=== PATIENT | female | born 1990 | race Caucasian/White ===

== ENCOUNTER 2017-12-06 10:05 | Emergency (ER) | payer OTHER ==
[2017-12-06 10:38] VITALS: TEMP 98.6; BMI 22.6
[2017-12-06] MEDS ORDERED: METOCLOPRAMIDE HCL INJECTION 10 MG/2 ML VIAL IVPUSH ONE (11:12)
[2017-12-06] MEDS ORDERED: SODIUM CHLORIDE 1,000 ML IV STA (11:12)
--- NOTE | 2017-12-06 11:13 | PDOC ---
History of Present Illness - General Chief Complaint: Pain, Acute Stated Complaint: ABD PAIN, VOMITING Time Seen by Provider: 12/06/17 10:48 History Source: Patient Exam Limitations: No Limitations - History of Present Illness Initial Comments: 12/06/17 11:42 27F 7weeks , by otc urine test, no bloodwork or u/s done presents with nausea, vomiting and suprapubic pain since last night. Denies vaginal discharge or dysuria. Past History - Past Medical History Allergies/Adverse Reactions: Allergies Allergy/AdvReac Type Severity Reaction Status Date / Time No Known Allergies Allergy Verified 12/06/17 10:35 Home Medications: Ambulatory Orders Pyridoxine HCl (B-6) [Vitamin B6 -] 25 mg PO TID #21 tablet 12/06/17 COPD: No Other medical history: DENIES. - Suicide/Smoking/Psychosocial Hx Smoking History: Never smoked Review of Systems - Review of Systems Able to Perform ROS?: Yes Is the patient limited Mohawk proficient: No Constitutional: No: Symptoms Reported HEENTM: No: Symptoms Reported Respiratory: No: Symptoms reported Cardiac (ROS): No: Symptoms Reported ABD/GI: Yes: See HPI : No: Symptoms Reported Musculoskeletal: No: Symptoms Reported Integumentary: No: Symptoms Reported Neurological: No: Symptoms reported All Other Systems: Reviewed and Negative *Physical Exam - Vital Signs Last Vital Signs Temp Pulse Resp BP Pulse Ox 98.6 F 85 19 119/73 99 12/06/17 10:36 12/06/17 10:36 12/06/17 10:36 12/06/17 10:36 12/06/17 10:36 - Physical Exam General Appearance: Yes: Nourished, Appropriately Dressed, Mild Distress HEENT: positive: EOMI, FRANK, Normal ENT Inspection Respiratory/Chest: positive: Lungs Clear, Normal Breath Sounds. negative: Chest Tender, Respiratory Distress Cardiovascular: positive: Regular Rhythm, Regular Rate, S1, S2 Gastrointestinal/Abdominal: positive: Normal Bowel Sounds, Tender (mild tenderness suprapubic), Flat, Soft Extremity: positive: Normal Capillary Refill, Normal Inspection, Normal Range of Motion Integumentary: positive: Normal Color, Dry, Warm Neurologic: positive: Fully Oriented, Alert, Normal Mood/Affect ED Treatment Course - LABORATORY CBC & Chemistry Diagram: 12/06/17 12:04 12/06/17 12:05 Medical Decision Making - Medical Decision Making 12/06/17 14:40 Patient labs all within normal limit. ABD U/S; Viable twin intrauterine at approximately 6 weeks 0 days. No definite sonographic abnormality is identified. A 2 cm right ovarian cyst is seen containing increased intraluminal echogenicity probably representing a hemorrhagic corpus luteum. The left ovary could not be definitely visualized Patient dicharged with B6 rx and recommendation to follow up with OBGYN *DC/Admit/Observation/Transfer Diagnosis at time of Disposition: Twin - Discharge Dispostion Disposition: HOME Admit: No - Prescriptions Prescriptions: Pyridoxine HCl (B-6) [Vitamin B6 -] 25 mg PO TID #21 tablet - Referrals Referrals: Soledad Hall [Primary Care Provider] - - Patient Instructions Printed Discharge Instructions: Coping With Competition Between Twins, Multiple Pregnancies, How to Breastfeed Twins Additional Instructions: Follow up with your OBGYN within 2-4 days. Come back to the ED for any new, worsening or concerning symptoms - Post Discharge Activity
--- NOTE | 2017-12-06 11:38 | PDOC ---
Attending Attestation - HPI HPI: 12/06/17 12:06 The patient is a 27 year old 7 weeks female , with no significant past medical history, who presents to the emergency department with, one day of nausea, vomiting, and suprapubic pain. As per patient, she found out she was two weeks ago and is scheduled to visit her OBGYN on Thursday. She denies any recent sick contacts. She denies any recent discharge or bleeding. She denies recent fevers, chills, headache or dizziness. She denies recent diarrhea or constipation. She denies recent dysuria, frequency, urgency or hematuria. She denies recent chest pain or shortness of breath. Allergies: NKA Past surgical history: None reported. Social history: Nonsmoker. Denies EtOH use and recreational drug use. Primary Care Physician: Dr. Soledad Hall - Physicial Exam PE: 12/06/17 12:06 Constitutional: Awake, alert, oriented. No acute distress. Head: Normocephalic. Atraumatic Eyes: PERRL. EOMI. Conjunctivae are not pale. ENT: Mucous membranes are moist and intact. Posterior pharynx without exudates or erythema. Uvula midline. Neck: Supple. Full ROM. No lymphadenopathy. Cardiovascular: Regular rate. Regular rhythm. S1, S2 regular. Distal pulses are 2+ and symmetric. Pulmonary/Chest: No evidence of respiratory distress. Clear to auscultation bilaterally No wheezing, rales or rhonchi. Abdominal: Soft and non-distended. There is no tenderness. No rebound, guarding or rigidity. No organomegaly. No palpable masses. Good bowel sounds. Genitourinary: +Mild suprapubic tenderness. Back: No CVA tenderness. Musculoskeletal: No edema. No cyanosis. No clubbing. Full range of motion in all extremities. No calf tenderness. Radial/pedal pulses are intact and 2+ bilaterally Skin: Skin is warm and dry. No petechiae. No purpura. Neurological: Alert and oriented to person, place, and time. Cranial nerves II -XII are grossly intact. Normal speech. Strength is grossly symmetric. No sensory deficits. Psychiatric: Good eye contact. Normal interaction, affect and behavior. <Nima Zamorano - Last Filed: 12/06/17 12:06> - Resident Resident Name: GayleDaniel - ED Attending Attestation I have performed the following: I have examined & evaluated the patient, The case was reviewed & discussed with the resident, I agree w/resident's findings & plan, Exceptions are as noted - Medical Decision Making 12/06/17 11:37 I, Dr. Linda Beebe, DO, attest that this document has been prepared under my direction and personally reviewed by me in its entirety. I further attest, that it accurately reflects all work, treatment, procedures and medical decision -making performed by me. 12/06/17 11:37 a/p: 27yo female at 8 weeks gestation -has not seen a doc with this pregn -n/v since this AM -lower abd pain -no vaginal bleeding -no dysuria -will check labs, ultrasound, ivf hydration, nausea control -will monitor and reassess 12/06/17 14:20 labs reviewed 12/06/17 14:20 blood type is A+ 12/06/17 14:20 twin preg at 6 weeks gestation on ultrasound stable for d/c to home <Linda Beebe - Last Filed: 12/06/17 14:23> Attestations - Attestations 12/06/17 12:07 Documentation prepared by Nima Zamorano, acting as medical psychotherapist for Linda Beebe DO. <Nima Zamorano - Last Filed: 12/06/17 12:06>
[2017-12-06] MEDS ORDERED: METOCLOPRAMIDE HCL INJECTION 10 MG/2 ML VIAL ONE (12:06)
[2017-12-06 12:19] LABS: EOS % 1.3 % (0-4.5); HEMOGLOBIN 12.9 GM/dL (10.7-15.3); LYMPH % 27.6 % (8-40); MCH 28.8 pg (25.7-33.7); MCHC 33.1 g/dl (32.0-36.0); MEAN CELL VOLUME 87.1 fl (80-96); MEAN PLT VOLUME 7.7 fl (7.5-11.1); NEUT % 64.1 % (42.8-82.8); PLATELET COUNT 339 K/MM3 (134-434); RBC 4.48 M/mm3 (3.60-5.2); RDW 13.7 % (11.6-15.6); WHITE BLOOD COUNT 7.8 K/mm3 (4.0-10.0)
[2017-12-06 12:28] LABS: URINE APPEARANCE CLEAR; URINE BILIRUBIN NEGATIVE (NEGATIVE); URINE BLOOD NEGATIVE (NEGATIVE); URINE COLOR LTYELLOW; URINE GLUCOSE (UA) NEGATIVE (NEGATIVE); URINE KETONE NEGATIVE (NEGATIVE); URINE LEUK ESTERASE NEGATIVE (NEGATIVE); URINE NITRITE NEGATIVE (NEGATIVE); URINE PROTEIN NEGATIVE (NEGATIVE); URINE UROBILINOGEN NEGATIVE mg/dL (0.2-1.0)
[2017-12-06 12:48] LABS: ANION GAP 10 (8-16); BILIRUBIN,TOTAL 0.8 mg/dL (0.2-1.0); BLOOD UREA NITROGEN 5 mg/dL (7-18); CALCIUM 9.4 mg/dL (8.5-10.1); CHLORIDE 105 mmol/L (98-107); CO2 22 mmol/L (21-32); CREATININE 0.5 mg/dL (0.55-1.02); GLUCOSE,RANDOM 80 mg/dL (74-106); SGPT/ALT 25 U/L (12-78); SODIUM 137 mmol/L (136-145); TOT PROT 7.8 g/dl (6.4-8.2)
[2017-12-06 13:03] LABS: ALK PHOS 63 U/L (45-117)
[2017-12-06 13:06] LABS: POTASSIUM 4.4 mmol/L (3.5-5.1); SGOT/AST 21 U/L (15-37)
[2017-12-06 15:09] VITALS: BP 115/67; PULSE 72
== END 2017-12-06 15:11 | disposition home or self-care (01) ==
LOC: JER 10:05
PROC: 3E033GC Introduction of Other Therapeutic Substance into Peripheral Vein, Percutaneous Approach (ICD-10-PCS; principal; 2017-12-06)
DX: O26.891 Other specified pregnancy related conditions, first trimester (principal); O30.091 Twin pregnancy, unable to determine number of placenta and number of amniotic sacs, first trimester; Z3A.01 Less than 8 weeks gestation of pregnancy
CPT/HCPCS: 36415; 76801-TC; 80053; 81003; 84702; 85025; 86850; 86900; 86901; 99283-25

== ENCOUNTER 2018-02-09 11:58 | Emergency (ER) | payer OTHER ==
[2018-02-09 12:05] VITALS: BMI 23.0
--- NOTE | 2018-02-09 12:33 | PDOC ---
History of Present Illness - General Chief Complaint: Cold Symptoms Stated Complaint: COLD SYMPTOMS Time Seen by Provider: 02/09/18 12:33 - History of Present Illness Initial Comments: 27 year old female 15 weeks by US presenting with cough, nasal congestion , and right lower chest pain. States that she had a mostly dry cough starting 5 days ago that has seemingly improved but just started to develop nasal congestion over the past three days. She had a coughing bout last night that caused her moore in her right lower ribs that is worse with cough, deep inspiration, palpation, and certain movements. She has taken Tylenol with good relief and Dr. Conway recommended she take a non-additive form of robutussin when she called her a few nights ago. She otherwise denies fevers, chills,. nause,a vomiting, diarrhea, urinary symptos, vaginal discharge/ bleeding, or other symptoms. 02/09/18 12:56 Past History - Past Medical History Allergies/Adverse Reactions: Allergies Allergy/AdvReac Type Severity Reaction Status Date / Time No Known Allergies Allergy Verified 02/09/18 12:02 Home Medications: Ambulatory Orders Azithromycin [Zithromax 250mg Tablets -] 250 mg PO UTDICT #6 tab 02/09/18 No122/Iron/Folic Acid [ Multi Tablet] 1 each PO DAILY 02/09/18 COPD: No - Reproductive History (#): 1 Para: 0 - Immunization History Immunization Up to Date: Yes - Suicide/Smoking/Psychosocial Hx Smoking History: Never smoked Have you smoked in the past 12 months: No Information on smoking cessation initiated: No Hx Alcohol Use: No Drug/Substance Use Hx: No Substance Use Type: None Review of Systems - Review of Systems Constitutional: No: Chills, Diaphoresis, Fever Respiratory: No: Cough, Orthopnea, Shortness of Breath Cardiac (ROS): Yes: Chest Pain. No: Edema, Irregular Heart Rate ABD/GI: No: Constipated, Diarrhea, Nausea, Vomiting, Indigestion : No: Burning, Dysuria, Discharge Musculoskeletal: No: Back Pain, Gout, Joint Pain, Muscle Weakness Integumentary: No: Bruising, Erythema, Flushing, Lesions Neurological: Yes: Headache. No: Numbness, Paresthesia Hematologic/Lymphatic: No: Anemia, Blood Clots, Easy Bleeding *Physical Exam - Vital Signs Last Vital Signs Temp Pulse Resp BP Pulse Ox 98.9 F 101 H 18 124/72 100 02/09/18 12:02 02/09/18 12:02 02/09/18 12:02 02/09/18 12:02 02/09/18 12:02 - Physical Exam General Appearance: Yes: Nourished, Appropriately Dressed. No: Apparent Distress HEENT: positive: EOMI, FRANK, Normal Voice, Symmetrical, TMs Normal. negative: Normal ENT Inspection (Slight sinus tenderness), Pharynx Normal (erythemetaous oropharnyx) Neck: positive: Trachea midline, Normal Thyroid, Supple. negative: Tender, Rigid Respiratory/Chest: positive: Chest Tender (right lower rib moore), Lungs Clear, Normal Breath Sounds. negative: Respiratory Distress, Accessory Muscle Use Cardiovascular: positive: Regular Rhythm, Regular Rate Gastrointestinal/Abdominal: positive: Normal Bowel Sounds, Soft, Protuberent. negative: Tender, Flat Musculoskeletal: negative: Normal Inspection (right lower rib pain per above), CVA Tenderness Extremity: positive: Normal Capillary Refill, Normal Inspection. negative: Tender Integumentary: positive: Normal Color, Dry, Warm Neurologic: positive: Fully Oriented, Alert, Normal Mood/Affect, Motor Strength 5/5 Medical Decision Making - Medical Decision Making Healthy 27 year old female 15 weeks by US presenting with symptoms concerning for viral URI but given status and slightly prolonged course of symptoms will treat empirically for sinusitis and atypical pneumonia. Not likely PE given lack of hypoxia and quality of chest pain (reproducible). Influenzae negative so will send home with Z-pack and return precautions. 02/09/18 13:36 *DC/Admit/Observation/Transfer Diagnosis at time of Disposition: URI (upper respiratory infection) Qualifiers: URI type: unspecified viral URI Qualified Code(s): J06.9 - Acute upper respiratory infection, unspecified - Discharge Dispostion Disposition: HOME Condition at time of disposition: Improved Admit: No - Prescriptions Prescriptions: Azithromycin [Zithromax 250mg Tablets -] 250 mg PO UTDICT #6 tab - Referrals Referrals: Soledad Hall [Primary Care Provider] - Divya Valentin MD [Staff Physician] - - Patient Instructions Printed Discharge Instructions: DI for Viral Upper Respiratory Infection -- Adult Additional Instructions: Pdlease take your azithromycin as instructed. Please return to the ED if you have new or worsening symptoms. Please follow up with Dr. Conway in 3 days. - Post Discharge Activity
--- NOTE | 2018-02-09 13:18 | PDOC ---
Attending Attestation - Resident Resident Name: CristyBladepauline - ED Attending Attestation I have performed the following: I have examined & evaluated the patient, The case was reviewed & discussed with the resident, I agree w/resident's findings & plan - HPI HPI: 02/09/18 13:15 Healthy 27-year-old female about 15 weeks uneventful twin gestation presents with 4-5 days of increasing URI symptoms of nasal congestion, dry cough, and now with some localized right rib pain since last night. Patient was having forceful coughing fit and developed a sharp pain to her right lower ribs, since then pain has been persistent and worse with sneezing or coughing or deep inspiration. No change in the cough, no shortness of breath or dyspnea on exertion, no chest pain. No fevers or chills. Has symptoms of sinusitis, presents for evaluation. No unilateral leg swelling or pain, no recent travel, nonsmoker. No history of pneumonia. - Physicial Exam PE: 02/09/18 13:16 Vital signs within normal limits, heart rate 95 at rest. O2 sat 100% on room air Positive nasal congestion, oropharynx is clear, neck is supple Lungs are clear without focal wheezing, no focally decreased breath sounds, no accessory muscle use Reproducible right lower rib intercostal tenderness without bruising or swelling No edema - Medical Decision Making 02/09/18 13:17 Patient seen and evaluated with the resident. I agree with the overall evaluation, assessment, and management with the following summary of visit: Healthy 27-year-old female with URI symptoms for 5 days, right rib pain since last night most consistent with rib strain, no evidence of pneumonia on history or exam. Likely has superimposed sinusitis. Vital signs are normal No indication for emergent imaging We'll treat sinusitis with azithromycin Tylenol for pain Understands return criteria
[2018-02-09 13:33] VITALS: BP 118/84; PULSE 98; TEMP 98.1
== END 2018-02-09 13:54 | disposition home or self-care (01) ==
LOC: JER 11:58
DX: O99.512 Diseases of the respiratory system complicating pregnancy, second trimester (principal); J06.9 Acute upper respiratory infection, unspecified; Z3A.15 15 weeks gestation of pregnancy
CPT/HCPCS: 87804; 99282-25

== ENCOUNTER 2018-02-19 09:59 | Emergency (ER) | payer OTHER ==
[2018-02-19 10:08] VITALS: TEMP 98.2; BMI 23.2
--- NOTE | 2018-02-19 10:33 | PDOC ---
History of Present Illness - General Chief Complaint: Pain, Acute Stated Complaint: RT SIDE PAIN Time Seen by Provider: 02/19/18 10:32 History Source: Patient - History of Present Illness Initial Comments: 02/19/18 10:52 Patient is a 27 year old female at a self-reported 16 weeks gestation who presents with acute onset of R sided pain. Patient states she had an episode of emesis this morning which was followed immediately by a "sharp" pain in her right side. The pain is non-radiating, 10/10 and worse with movement but not with breathing. Denies any recent trauma, note h/o viral URI for which was taking Robitussin. Patient states she had an outpatient abdominal U/S earlier this week at which time she was told everything was normal. Patient denies fevers/chills, chest pain, shortness of breath, vaginal bleeding , dysuria/hematuria. As per EMR patient evaluated at our facility on 02/09 with viral URI symptoms at which time she similarly complained of R rib pain. 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 Past History - Past Medical History Allergies/Adverse Reactions: Allergies Allergy/AdvReac Type Severity Reaction Status Date / Time No Known Allergies Allergy Verified 02/19/18 10:03 Home Medications: Ambulatory Orders No122/Iron/Folic Acid [ Multi Tablet] 1 each PO DAILY 02/09/18 COPD: No - Reproductive History (#): 1 Para: 0 - Immunization History Immunization Up to Date: Yes - Suicide/Smoking/Psychosocial Hx Smoking History: Never smoked Have you smoked in the past 12 months: No Hx Alcohol Use: No Drug/Substance Use Hx: No Substance Use Type: None Review of Systems - Review of Systems Constitutional: No: Chills, Fever HEENTM: No: Recent change in vision Respiratory: No: Cough, Shortness of Breath Cardiac (ROS): No: Chest Pain, Lightheadedness, Palpitations, Syncope ABD/GI: Yes: Nausea, Vomiting. No: Constipated, Diarrhea : No: Burning, Dysuria *Physical Exam - Vital Signs Last Vital Signs Temp Pulse Resp BP Pulse Ox 98.2 F 82 18 140/90 100 02/19/18 10:03 02/19/18 10:03 02/19/18 10:03 02/19/18 10:03 02/19/18 10:03 - Physical Exam General Appearance: Yes: Nourished, Appropriately Dressed HEENT: positive: EOMI, FRANK Neck: positive: Trachea midline, Supple Respiratory/Chest: positive: Lungs Clear Cardiovascular: positive: S1, S2 Vascular Pulses: Dorsalis-Pedis (R): 1+, Doralis-Pedis (L): 1+ Gastrointestinal/Abdominal: positive: Normal Bowel Sounds, Soft, Other (fundal height b/t sub-xiphoid and umbilicus) Musculoskeletal: negative: CVA Tenderness (R), CVA Tenderness (L) Extremity: positive: Normal Capillary Refill, Normal Inspection Integumentary: positive: Normal Color, Dry, Warm Neurologic: positive: Fully Oriented, Alert ED Treatment Course - LABORATORY CBC & Chemistry Diagram: 02/19/18 12:18 02/19/18 12:18 Medical Decision Making - Medical Decision Making 02/19/18 12:41 27 year old female at a self-reported 16 weeks gestation presents with R sided abdominal pain. Collins's sign equivocal. R sided rib cage tenderness. Will obtain abdominal and GB U/S to rule out early appendicitis or cholecystitis. Reasess. 02/19/18 13:02 CBC shows no leukocytosis. Normal GB w/o cholelithiasis or posterior wall thickening on U/S. Appendix not visualized. Patient's pain resolved with IV NS and Tylenol. At this time low clinical suspicion for acute abdomen including cholecystitis, appendicitis, suspect muscle strain. Patient and patient's family at beside counseled on SiSx of appendicitis and instructed return immediately to ED for fevers, vomiting, severe pain. I discussed the physical exam findings, ancillary test results and final diagnoses with the patient. I answered all of the patient's questions. The patient was satisfied with the care received and felt comfortable with the discharge plan and treatment plan. The patient will return to the Emergency Department with any new, persistent or worsening symptoms. *DC/Admit/Observation/Transfer Diagnosis at time of Disposition: Muscle strain - Discharge Dispostion Disposition: HOME Condition at time of disposition: Good Admit: No - Referrals Referrals: Soledad Hall [Primary Care Provider] - - Patient Instructions Printed Discharge Instructions: Muscle Strain Additional Instructions: You can take Tylenol for your pain. Follow up with your primary care doctor in the next 48-72 hours. Return to the Emergency Department for any new/worsening/concerning symptoms. - Post Discharge Activity Forms/Work/School Notes: Back to Work
--- NOTE | 2018-02-19 10:52 | PDOC ---
Attending Attestation - Resident Resident Name: Myranda Chapa - ED Attending Attestation I have performed the following: I have examined & evaluated the patient, The case was reviewed & discussed with the resident, I agree w/resident's findings & plan, Exceptions are as noted - HPI HPI: 02/20/18 18:15 Ms Clay is a 27 yo female 16 weeks gestation by who presents with R sided thoracic/abdominal pain. One episode of emesis Worsens with moving or palpation. Not worse with deep breath Non-radiating, 10/10 and worse with movement but not with breathing. no recent trauma No fevers or chills. No shortness of breath - Physicial Exam PE: 02/20/18 19:09 On examination Pt is Awake and Alert Answers questions appropriately RRR CTA Gravid abdomen No abdominal tenderness to palpation right midaxillary point tenderness - Medical Decision Making Point tenderness which has been present since patient's last visit US no evidence of appendicitis (however patient's pain is right lower thoracic) No abdominal pain No evidence of UTI Pt can have tylenol for pain Will discharge to home Follow up with OB
[2018-02-19 12:30] LABS: BASO % 0.5 % (0-2.0); EOS % 1.1 % (0-4.5); HEMATOCRIT 35.2 % (32.4-45.2); HEMOGLOBIN 12.1 GM/dL (10.7-15.3); LYMPH % 19.8 % (8-40); MCH 30.4 pg (25.7-33.7); MCHC 34.4 g/dl (32.0-36.0); MEAN CELL VOLUME 88.3 fl (80-96); MEAN PLT VOLUME 7.2 fl (7.5-11.1); MONO % 5.2 % (3.8-10.2); NEUT % 73.4 % (42.8-82.8); PLATELET COUNT 291 K/MM3 (134-434); RBC 3.99 M/mm3 (3.60-5.2); WHITE BLOOD COUNT 10.4 K/mm3 (4.0-10.0)
[2018-02-19 12:55] LABS: ALBUMIN 3.1 g/dl (3.4-5.0); ANION GAP 7 (8-16); BILIRUBIN,TOTAL 0.3 mg/dL (0.2-1.0); BLOOD UREA NITROGEN 6 mg/dL (7-18); CALCIUM 8.5 mg/dL (8.5-10.1); CHLORIDE 108 mmol/L (98-107); CO2 23 mmol/L (21-32); CREATININE 0.3 mg/dL (0.55-1.02); GLUCOSE,RANDOM 76 mg/dL (74-106); LIPASE 166 U/L (73-393); SGOT/AST 24 U/L (15-37); SGPT/ALT 40 U/L (12-78); SODIUM 138 mmol/L (136-145); TOT PROT 6.5 g/dl (6.4-8.2)
[2018-02-19 13:11] LABS: ALK PHOS 53 U/L (45-117)
[2018-02-19 13:19] LABS: URINE APPEARANCE CLEAR; URINE BILIRUBIN NEGATIVE (<2.0 mg/dL); URINE COLOR STRAW; URINE GLUCOSE (UA) NEGATIVE (NEGATIVE); URINE KETONE NEGATIVE (NEGATIVE); URINE LEUK ESTERASE NEGATIVE (NEGATIVE); URINE NITRITE NEGATIVE (NEGATIVE); URINE PROTEIN NEGATIVE (NEGATIVE); URINE UROBILINOGEN NEGATIVE mg/dL (0.2-1.0)
[2018-02-19 14:21] VITALS: BP 114/87; PULSE 81
== END 2018-02-19 14:15 | disposition home or self-care (01) ==
LOC: JER 09:59
DX: O26.892 Other specified pregnancy related conditions, second trimester (principal); Z3A.16 16 weeks gestation of pregnancy; T14.8XXA Other injury of unspecified body region, initial encounter
CPT/HCPCS: 36415; 76705-TC; 76856-TC; 80053; 81003; 83605; 83690; 84702; 85025; 87086; 99282-25

== ENCOUNTER 2018-07-01 13:35 | Inpatient (IN) | payer OTHER ==
[2018-07-01] MEDS ORDERED: LACTATED RINGERS SOLUTION 500 ML IV ONE ×2 (14:45→15:45)
[2018-07-01] MEDS ORDERED: CITRIC ACID/SODIUM CITRATE 30 ML UNIT-DOSE CUP PO ONE (16:05)
[2018-07-01] MEDS ORDERED: ELECTROLYTE-148 SOLN 1,000 ML IV SCH (16:15)
[2018-07-01 16:22] VITALS: BMI 28.5
--- NOTE | 2018-07-01 16:26 | HP ---
Past Medical History - Primary Care Physician PCP:: Divya Valentin - Admission Chief Complaint: 27 yrs , 35.4/7 weeks by sono & 36.1 weeks by dates known c/o monchorionic diamniotic twins in labor ( vx, & breech ) onset since 11.15 AM s/p Betamthasone 12.5 mg x2 dose given on & 06/11. She was hydrated twice before for Threatened PTL on 06/10 & 06/24/18. sono done today A baby vx with hand in front of it ,fluid in front of vx ,. B baby breech , . after IV hydration UC did not stop , continue to have uc. Case discussed with Dr Alonzo , In view of continued labor uc, & small babies recommends delivery , no need of tocolysis . History of Present Illness: care at [address] [place] [address] wt gain34 lbs panel 12/11/17 A pos, hbsag neg, rpr nr, rubella immune, hiv neg, sickle neg , cf screen neg .Pap NILM, gc/ct neg 04/20/18 pngt 100, rpr nr, Quantiferon neg 06/29/18 gbs taken report pending , gc/ct neg , hiv neg. 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 Weeks Gestation by Dates: 36.3 ...EDC by Dates: 07/26/18 ...EDC by Sono: 08/01/18 (35.4 weeks by sono ) Heme/Onc: No: Anemia Infectious Disease: No: AIDS, HIV, STD's, Tuberculosis Psych: Yes: Other (no h/o mental illness) Endocrine: No: Hyperthyroidism, Hypothyroidism - Past Surgical History Past Surgical History: Yes: None Hx Myomectomy: No Hx Transabdominal Cerclage: No - Smoking History Smoking history: Never smoked Have you smoked in the past 12 months: No - Alcohol/Substance Use Hx Alcohol Use: No History of Substance Use: reports: None Home Medications - Allergies Allergies/Adverse Reactions: Allergies Allergy/AdvReac Type Severity Reaction Status Date / Time No Known Allergies Allergy Verified 07/01/18 15:29 - Home Medications Home Medications: Ambulatory Orders Ferrous Sulfate [Feosol] 325 mg PO DAILY 06/10/18 Vitamins (Sjr) - 1 tab PO DAILY 06/10/18 Physical Exam - Maternity Vital Signs: Vital Signs Temperature 99.3 F 07/01/18 14:00 Pulse Rate 106 H 07/01/18 14:00 Respiratory Rate 18 07/01/18 14:00 Blood Pressure 127/78 07/01/18 14:00 O2 Sat by Pulse Oximetry (%) Selected Entries 07/01/18 16:07 Weight 151 lb Constitutional: Yes: Well Nourished, Anxious, Mild Distress Eyes: Yes: WNL HENT: Yes: WNL, Normocephalic Neck: Yes: WNL Cardiovascular: Yes: WNL, Regular Rate and Rhythm Breast(s): Yes: WNL - Abdominal Exam/OB Fundal Height: 38 Number of Fetuses: Multiple Presentation: Vertex, Breech Contractions: Yes Regularity: Regular (2-3 min) Intensity: Moderate Monitor Mode: External Heart Rate (range): 135/140 Heart Rate Location: LUQ (B baby 140-150), RLQ (A baby 135-140) Category: I Accelerations: Uniform Decelerations: None - Vaginal Exam/OB Vaginal Bleediing: No Speculum Exam: No Dilatation (cm): FT Effacement (%): 60 Amniotic Membrane Status: Intact Presentation: Vertex/Position (A Baby Vx B Baby Breech) Station: -3 - Physical Exam Extremities: Yes: WNL. No: Calf Tenderness Edema: Yes Edema: LLE: 1+, RLE: 1+ Integumentary: Yes: WNL Deep Tendon Reflex Grade: Normal +2 ...Motor Strength: WNL Psychiatric: Yes: WNL, Alert, Oriented - Labs Lab Results: Laboratory Tests 07/01/18 16:15 WBC 10.3 H RBC 4.28 Hgb 13.4 Hct 39.6 Plt Count 232 D MPV 7.7 Absolute Neuts (auto) 7.1 Neutrophils % 68.6 Lymphocytes % 22.1 Monocytes % 7.6 Eosinophils % 1.2 Basophils % 0.5 Laboratory Tests 07/01/18 07/01/18 07/01/18 16:15 16:15 16:15 PT with INR 10.50 INR 0.93 PTT (Actin FS) 26.2 Sodium 137 Potassium 4.2 Chloride 104 Carbon Dioxide 24 BUN 11 Random Glucose 63 L Calcium 9.2 Blood Type A POSITIVE Antibody Screen Negative Hemorrhage Risk Assessment - Risk Factors Medium Risk Factors: Yes: Multiple gestation Risk Score: 1 Risk Level: Medium Risk Problem List - Problems (1) with 35 completed weeks gestation Code(s): Z3A.35 - 35 WEEKS GESTATION OF (2) Monochorionic diamniotic twin gestation in third trimester Code(s): O30.033 - TWIN , MONOCHORIONIC/DIAMNIOTIC, THIRD TRIMESTER (3) Labor established Code(s): KIZ8533 - Assessment/Plan 27 yrs 35.4, Twins monochorionic diamniotic ,( 16 % discordant growth ) vx & breech , in labor Plan : Primary c/section
[2018-07-01 16:44] LABS: BASO % 0.5 % (0-2.0); EOS % 1.2 % (0-4.5); HEMATOCRIT 39.6 % (32.4-45.2); HEMOGLOBIN 13.4 GM/dL (10.7-15.3); LYMPH % 22.1 % (8-40); MCH 31.4 pg (25.7-33.7); MCHC 33.9 g/dl (32.0-36.0); MEAN CELL VOLUME 92.5 fl (80-96); MEAN PLT VOLUME 7.7 fl (7.5-11.1); MONO % 7.6 % (3.8-10.2); NEUT % 68.6 % (42.8-82.8); PLATELET COUNT 232 K/MM3 (134-434); RBC 4.28 M/mm3 (3.60-5.2); RDW 13.9 % (11.6-15.6); WHITE BLOOD COUNT 10.3 K/mm3 (4.0-10.0)
[2018-07-01 17:01] LABS: INR 0.93 (0.83-1.09); PROTHROMBIN TIME (PATIENT) 10.5 SEC (9.7-13.0)
[2018-07-01 17:04] LABS: ACTIVATED PTT 26.2 SECONDS (25.2-36.5)
[2018-07-01 17:06] LABS: ANION GAP 9 MMOL/L (8-16); BLOOD UREA NITROGEN 11 mg/dL (7-18); CALCIUM 9.2 mg/dL (8.5-10.1); CHLORIDE 104 mmol/L (98-107); CO2 24 mmol/L (21-32); CREATININE 0.6 mg/dL (0.55-1.3); GLUCOSE,RANDOM 63 mg/dL (74-106); POTASSIUM 4.2 mmol/L (3.5-5.1); SODIUM 137 mmol/L (136-145)
[2018-07-01] MEDS ORDERED: morphine SULFATE/Preservative Free 0.5 MG/ML (1cc Syringe) ONE (17:08)
[2018-07-01] MEDS ORDERED: OXYTOCIN 20 UNITS in 0.9% NS 40 UNIT/2,000 ML INFUS.BAG IV ONE (17:11)
[2018-07-01] MEDS ORDERED: PHENYLEPHRINE HCL 10 MG/1 ML SINGLE DOSE VIAL ONE (17:37)
[2018-07-01] MEDS ORDERED: OXYTOCIN 10 UNITS/ML VIAL ONE (17:37)
[2018-07-01] MEDS ORDERED: ONDANSETRON 4 MG/2 ML VIAL IVPUSH PRN (18:26)
[2018-07-01 18:33] LABS: VENOUS PC02 42.4 mmHg (38-52); VENOUS PH 7.35 (7.32-7.42); VENOUS PO2 30.6 mmHg (28-48)
[2018-07-01 18:35] LABS: ARTERIAL BLOOD GAS BASE EXCESS -2.2 meq/l (-2-2); ARTERIAL BLOOD GAS PCO2 59.9 mmHg (35-45); ARTERIAL BLOOD GAS pH 7.26 (7.35-7.45)
[2018-07-01 18:37] LABS: ARTERIAL BLOOD GAS PO2 9.5 mmHg (80-100)
[2018-07-01 18:38] LABS: ARTERIAL BLD GAS O2 SATURATION 8.9 % (90-98.9)
[2018-07-01 18:40] LABS: ARTERIAL BLOOD GAS BASE EXCESS -2.9 meq/l (-2-2); ARTERIAL BLOOD GAS PCO2 50.2 mmHg (35-45); ARTERIAL BLOOD GAS pH 7.3 (7.35-7.45)
[2018-07-01 18:45] LABS: ARTERIAL BLOOD GAS PO2 21.2 mmHg (80-100)
[2018-07-01 18:46] LABS: ARTERIAL BLD GAS O2 SATURATION 39.1 % (90-98.9)
[2018-07-01 18:47] LABS: VENOUS PC02 44.9 mmHg (38-52); VENOUS PH 7.35 (7.32-7.42); VENOUS PO2 29.5 mmHg (28-48)
--- NOTE | 2018-07-01 18:48 | PN ---
Delivery - Delivery Section: Primary, Low Flap Transverse (35.4 weeks twins in labor) Type of Anesthesia: Spinal EBL (cc): 700 (back out put 200 ml jody color ) Delivery, Single - Feeding Plan Initial Plan: Elected not to breastfeed exclusively throughout hospitalization Delivery, Multiple Births - Stages of Labor First Stage Date: 07/01/18 Time: 11:15 Delivery Baby "A" Date: 07/01/18 Time: 17:36 Placenta/Membranes "A" Date: 07/01/18 Time: 17:38 Delivery Baby "B" Date: 07/01/18 Time: 17:37 Placenta/Membranes "B" Date: 07/01/18 Time: 17:38 - Condition of Multiple Births 2 (B) Transcribing Operators Supervisor/Pile Driver Operator Present: Yes Transcribing Operators Supervisor: Reba Sood Gender: Female Weight: 4 lb 1 oz Position: Right (wilmar breech), SA Total Hours ROM (HRS/MINS): 3 min Placenta: Yes: Manual Removal, Uterine Exploration (monochorionic placenta) 1 (A) Transcribing Operators Supervisor/Pile Driver Operator Present: Yes Transcribing Operators Supervisor: Reba Sood Gender: Female Position: Right, OT Placenta: Yes: Manual Removal, Uterine Exploration (monochorionic [lacenta , diamnitic sac) - [place] 1 (A) 1 Minute Score: 9 [place] 1 (A) 5 Minutes Score: 9 2 (B) 1 Minute Score: 9 [place] 2 (B) 5 Minutes Score: 9 Remarks - Remarks Remarks: 27 yrs 35.4 weeks , monochorionic diamniotic twins , in labor pnc at [address] [place] [address] intraop course uneventful
--- NOTE | 2018-07-01 19:01 | OP ---
Operative Note - Note: Operative Date: 07/01/18 Pre-Operative Diagnosis: 35.4 weeks , Monichirionic Diamniotic Twins in Labor Operation: Primary LFTC/Section Findings: A baby tob , 5.36 pM , Baby Girl Vx ROT , 9/9, Wt 3'6" Ht 16.25" B baby tob 5.37 PM , Baby Girl, Storm Breech, RST , 9/9, Wt 4'1" , Ht 17 " one placenta, Two Amniotic Sac Amniotic fluid clear Both tubes & ovaries normal Dr Barrie Britton Die Caster present in the room Surgeon: Divya Valentin Mechanic Insulator: José Lopez Anesthesiologist/TAX PREPARER: Lazaro Muñoz Anesthesia: Spinal Specimens Removed: A baby cord segment for cord gas. A baby cord blood. B baby cord segment for cord gas. B baby cord blood. Placenta Estimated Blood Loss (mls): 700 Drains, Volume Out (mls): 200 (back out put jody color urine ) Fluid Volume Replaced (mls): 1,000 Operative Report Dictated: Yes
[2018-07-01] MEDS ORDERED: METHYLERGONOVINE MALEATE 0.2 MG/1 ML AMP IM PRN (19:09)
[2018-07-01] MEDS ORDERED: IBUPROFEN 800 MG/8 ML IJ IVPB PRN (19:09)
[2018-07-01] MEDS ORDERED: OXYTOCIN 20 UNITS in 0.9% NS 20 UNIT/1,000 ML INFUS.BAG IV SCH (19:30)
[2018-07-02] MEDS ORDERED: DEXTROSE 5%-WATER - 50 ML IVPB ONE ×3 (01:40→17:44)
[2018-07-02] MEDS ORDERED: ceFAZolin SODIUM 1 GM VIAL ONE ×3 (01:40→17:44)
[2018-07-02] MEDS: CEFAZOLIN 1 GM in DEXTROSE 5%-WATER - 50 ML IVPB SCH ×3 (01:49→17:50)
[2018-07-02 06:57] LABS: BASO % 0.4 % (0-2.0); EOS % 0.6 % (0-4.5); HEMATOCRIT 36.1 % (32.4-45.2); HEMOGLOBIN 12.2 GM/dL (10.7-15.3); LYMPH % 16.4 % (8-40); MCH 31.4 pg (25.7-33.7); MCHC 33.9 g/dl (32.0-36.0); MEAN CELL VOLUME 92.4 fl (80-96); MEAN PLT VOLUME 7.6 fl (7.5-11.1); MONO % 5.9 % (3.8-10.2); NEUT % 76.7 % (42.8-82.8); PLATELET COUNT 189 K/MM3 (134-434); RDW 13.8 % (11.6-15.6); WHITE BLOOD COUNT 11.6 K/mm3 (4.0-10.0)
--- NOTE | 2018-07-02 08:21 | PN ---
Progress Note (short form) - Note Progress Note: pod 1,s/p c/s , has mild low abdominal cramps, no excess vaginal bl;eeding CBC, BMP 07/02/18 06:00 07/01/18 16:15 Last Vital Signs Temp Pulse Resp BP Pulse Ox 98.0 F 86 18 107/77 99 07/02/18 06:00 07/02/18 06:00 07/02/18 06:00 07/02/18 06:00 07/01/18 21:00 abdomen soft, no distension, no cva incision dry, clean no no bleeding no calf tenderness plan ambulate, advance diet , pain management
--- NOTE | 2018-07-02 08:26 | PN ---
Progress Note (short form) - Note Progress Note: Anesthesia Post op/pain Pt seen and examined S;Alert and awake comfortable O: Vital Signs Temperature 98.0 F 07/02/18 06:00 Pulse Rate 86 07/02/18 06:00 Respiratory Rate 18 07/02/18 06:00 Blood Pressure 107/77 07/02/18 06:00 O2 Sat by Pulse Oximetry (%) 99 07/01/18 21:00 CBC, BMP 07/02/18 06:00 07/01/18 16:15 A/P Current Active Problems Labor established (Acute) Monochorionic diamniotic twin gestation in third trimester (Acute) with 35 completed weeks gestation (Acute) s/p c section Doing well post op Continue current care Kory Bradley MD
[2018-07-02] MEDS ORDERED: oxyCODONE HCL 5 MG TABLET PO PRN (09:00)
--- NOTE | 2018-07-02 09:11 | OP ---
DATE OF OPERATION: 07/01/2018 PREOPERATIVE DIAGNOSIS: At 35.4 weeks monochorionic diamniotic twins in labor. OPERATION: Primary low flap transverse section. SURGEON: Divya Valentin MD ELECTRONICS PARTS SALES REPRESENTATIVE SURGEON: VENITA Anglin ANESTHESIOLOGIST: Lazaro Muñoz MD ANESTHESIA: Spinal. EGG AND SPICE MIXER: Katelin Sood DO FINDINGS: This is a 27-year-old 1, para 0 at 36.1 weeks by dates and 35.4 weeks by sonogram diagnosed with monochorionic diamniotic twins. She started having contractions and getting contractions every 2 minutes. She was fingertip, 60% effaced, and the cervix was ballooned up. Discordance of the twins is they are 16% by the sonogram. As per recommendation by perinatologist, Dr. Hinton, deliver the babies. A baby by sonogram was Vertex. B baby breech presentation. Findings postoperative A baby girl Rot,3.6 ounces and height 16.25 inches. Baby B girl , wilmar breech rst 4.1 ounces and height 17 inches. scores for both babies 9/9. DESCRIPTION OF PROCEDURE: The abdomen was shaved, prepped. [place] was placed. Patient was taken to the operating room. Spinal anesthesia was given. The patient was placed in supine position. Abdomen was painted and draped in the usual manner, and the Pfannenstiel incision was made. Skin, subcutaneous tissue, anterior rectus sheath was incised transversely. Bleeding points were clamped and cauterized. Rectus muscle was from the rectus sheath. Parietal peritoneum was opened vertically. The lower flap by the peritoneum was incised transversely. Bladder was pushed down. The lower uterine segment was isolated. The lower uterine segment was incised transversely. B baby membranes ruptured first incidently and then delivery of A baby in vertex presentation from ROT position.,along with sac ruptured at he same time Baby girl. Weight was 3.6 ounces. Baby Apgars was 9/9. Cord was clamped. The A baby was handed over to the chief nursing executive. Baby B was breech presentation, wilmar breech, RST, was delivered at 5:37 p.m. Baby girl; Apgars 9/9, weight 4 pounds 1 ounce. Cord was clamped, and the cord was marked with the 2 clamps. Baby A cord segment was submitted for the cord blood gas, and baby A cord blood was collected, and it was marked with 1 clamp. Baby B cord segment was collected. Baby B blood was collected, and it was marked with 2 clamps. Placenta was removed completely with the membranes. Uterine cavity was cleaned then the closure of the uterine incision was done in 2 layers. The first layer was continuous locking with Biosyn 0 suture. Second layer was a continuous intermittent locking with a Biosyn 0 suture. Hemostasis was verified. Then the bladder peritoneum was closed with a Biosyn 0 suture. Hemostasis was verified. Both the tubes and ovaries were normal. The sponge, instrument and needle count was correct, and closure of the abdomen was done. Parietal peritoneum was closed with Vicryl suture. Muscles were approximated together with a Vicryl interrupted suture underneath anterior rectus sheath. Hemostasis was verified. Anterior rectus sheath was closed with a Vicryl 0 suture. Continuous sutures were taken. Hemostasis was verified in subcutaneous tissue and then the subcutaneous tissue was approximated with 2-0 Vicryl sutures. Hemostasis was verified. Then the skin was approximated with intradermal 3-0 Vicryl, Steri-Strips applied and pressure given. Vagina was cleaned with Betadine. Hardly any blood was noted in the vagina. Estimated blood loss was 700 mL. Urine output was 200 mL intraoperatively. It was clear. She received 2 g of IV Ancef prior to the incision. The patient tolerated the procedure well, and she was transferred to the recovery room in stable condition. Misti [id number] MTDD
[2018-07-02] MEDS: PRENATAL VITAMINS W/ FOLIC ACID TABLET (FP) PO SCH (09:14)
[2018-07-02] MEDS: ENOXAPARIN NA (PORCINE) 40 MG/0.4 ML DISP.SYRIN SQ SCH (09:14)
[2018-07-02] MEDS: IBUPROFEN 600 MG TABLET (FP) PO PRN ×2 (10:55→16:17)
[2018-07-02] MEDS: ACETAMINOPHEN 325 MG TABLET (FP) PO PRN ×2 (10:55→16:18)
[2018-07-02] MEDS: SIMETHICONE 80 MG TAB.CHEW (FP) PO PRN (16:18)
[2018-07-02] MEDS ORDERED: BISACODYL 10 MG SUPP.RECT RC PRN (19:09)
[2018-07-03] MEDS: IBUPROFEN 600 MG TABLET (FP) PO PRN ×4 (02:33→21:54)
[2018-07-03] MEDS: SIMETHICONE 80 MG TAB.CHEW (FP) PO PRN ×4 (02:33→21:53)
[2018-07-03] MEDS: ACETAMINOPHEN 325 MG TABLET (FP) PO PRN ×4 (02:34→21:54)
[2018-07-03] MEDS: FERROUS SO4 325 MG TABLET (FP) PO SCH ×2 (07:28→18:57)
[2018-07-03] MEDS: ENOXAPARIN NA (PORCINE) 40 MG/0.4 ML DISP.SYRIN SQ SCH (09:55)
[2018-07-03] MEDS: PRENATAL VITAMINS W/ FOLIC ACID TABLET (FP) PO SCH (09:55)
[2018-07-03] MEDS: SENNOSIDES/DOCUSATE COMBO (SENNA PLUS) TABLET (UD) PO PRN ×2 (10:07→21:53)
--- NOTE | 2018-07-03 10:30 | PN ---
Post Progress Note Post Day: 2 Type of Delivery: Primary C/S Vital Signs: Vital Signs Temperature 99 F 07/02/18 22:00 Pulse Rate 88 07/02/18 22:00 Respiratory Rate 18 07/02/18 22:00 Blood Pressure 121/85 07/02/18 22:00 O2 Sat by Pulse Oximetry (%) 99 07/01/18 21:00 Breast Exam: Yes: Soft Uterus: Yes: Fundus Firm Incision: Yes: Dressing dry and intact Abdomen/GI: Yes: Abdomen soft Lochia: Yes: Rubra Lochia, amount: Small Extremities: Yes: Calves non-tender Perineum: Yes: Intact Activity: Ambulating - Labs Labs: CBC WBC 11.6 K/mm3 (4.0-10.0) H 07/02/18 06:00 RBC 3.90 M/mm3 (3.60-5.2) 07/02/18 06:00 Hgb 12.2 GM/dL (10.7-15.3) 07/02/18 06:00 Hct 36.1 % (32.4-45.2) 07/02/18 06:00 MCV 92.4 fl (80-96) 07/02/18 06:00 MCH 31.4 pg (25.7-33.7) 07/02/18 06:00 MCHC 33.9 g/dl (32.0-36.0) 07/02/18 06:00 RDW 13.8 % (11.6-15.6) 07/02/18 06:00 Plt Count 189 K/MM3 (134-434) 07/02/18 06:00 MPV 7.6 fl (7.5-11.1) 07/02/18 06:00 Absolute Neuts (auto) 8.9 K/mm3 (1.5-8.0) H 07/02/18 06:00 Neutrophils % 76.7 % (42.8-82.8) 07/02/18 06:00 Lymphocytes % 16.4 % (8-40) D 07/02/18 06:00 Monocytes % 5.9 % (3.8-10.2) 07/02/18 06:00 Eosinophils % 0.6 % (0-4.5) 07/02/18 06:00 Basophils % 0.4 % (0-2.0) 07/02/18 06:00 Nucleated RBC % 0 % (0-0) 07/02/18 06:00 Assessment/Plan doing well oob pain control
[2018-07-04] MEDS: SIMETHICONE 80 MG TAB.CHEW (FP) PO PRN ×2 (08:55→17:13)
[2018-07-04] MEDS: IBUPROFEN 600 MG TABLET (FP) PO PRN ×2 (08:55→17:13)
[2018-07-04] MEDS: oxyCODONE HCL 5 MG TABLET PO PRN ×2 (08:55→17:12)
[2018-07-04] MEDS: FERROUS SO4 325 MG TABLET (FP) PO SCH ×2 (08:55→17:15)
[2018-07-04 09:14] LABS: BASO % 0.4 % (0-2.0); EOS % 2.5 % (0-4.5); HEMATOCRIT 32.4 % (32.4-45.2); HEMOGLOBIN 10.9 GM/dL (10.7-15.3); LYMPH % 21.4 % (8-40); MCH 31.2 pg (25.7-33.7); MCHC 33.7 g/dl (32.0-36.0); MEAN CELL VOLUME 92.4 fl (80-96); MEAN PLT VOLUME 7.7 fl (7.5-11.1); MONO % 5.9 % (3.8-10.2); NEUT % 69.8 % (42.8-82.8); PLATELET COUNT 211 K/MM3 (134-434)
[2018-07-04] MEDS: PRENATAL VITAMINS W/ FOLIC ACID TABLET (FP) PO SCH (12:01)
[2018-07-04] MEDS: ENOXAPARIN NA (PORCINE) 40 MG/0.4 ML DISP.SYRIN SQ SCH (12:02)
--- NOTE | 2018-07-04 13:33 | PN ---
Post Progress Note - Subjective Subjective: Pt feeling well. Ambulating. Tolerating diet. Type of Delivery: Primary C/S Vital Signs: Vital Signs Temperature 98.1 F 07/03/18 20:46 Pulse Rate 80 07/03/18 20:46 Respiratory Rate 18 07/03/18 20:46 Blood Pressure 120/80 07/03/18 20:46 O2 Sat by Pulse Oximetry (%) 99 07/01/18 21:00 Breast Exam: Yes: Soft Uterus: Yes: Fundus Firm Incision: Yes: Sutures intact Abdomen/GI: Yes: Abdomen soft Lochia: Yes: Rubra Lochia, amount: Small Extremities: Yes: Calves non-tender Activity: Ambulating - Labs Labs: CBC WBC 10.0 K/mm3 (4.0-10.0) 07/04/18 06:55 RBC 3.50 M/mm3 (3.60-5.2) L 07/04/18 06:55 Hgb 10.9 GM/dL (10.7-15.3) 07/04/18 06:55 Hct 32.4 % (32.4-45.2) 07/04/18 06:55 MCV 92.4 fl (80-96) 07/04/18 06:55 MCH 31.2 pg (25.7-33.7) 07/04/18 06:55 MCHC 33.7 g/dl (32.0-36.0) 07/04/18 06:55 RDW 14.0 % (11.6-15.6) 07/04/18 06:55 Plt Count 211 K/MM3 (134-434) 07/04/18 06:55 MPV 7.7 fl (7.5-11.1) 07/04/18 06:55 Absolute Neuts (auto) 7.0 K/mm3 (1.5-8.0) 07/04/18 06:55 Neutrophils % 69.8 % (42.8-82.8) 07/04/18 06:55 Lymphocytes % 21.4 % (8-40) D 07/04/18 06:55 Monocytes % 5.9 % (3.8-10.2) 07/04/18 06:55 Eosinophils % 2.5 % (0-4.5) D 07/04/18 06:55 Basophils % 0.4 % (0-2.0) 07/04/18 06:55 Nucleated RBC % 0 % (0-0) 07/04/18 06:55 Problem List - Problems (1) Monochorionic diamniotic twin gestation in third trimester Assessment/Plan: Pt POD# 3 s/p c/s continue routine postop care plan for discharge tomorrow. Dr. Serrano Code(s): O30.033 - TWIN , MONOCHORIONIC/DIAMNIOTIC, THIRD TRIMESTER
[2018-07-04 20:30] VITALS: TEMP 97.9
[2018-07-05] MEDS: IBUPROFEN 600 MG TABLET (FP) PO PRN ×2 (00:33→12:10)
[2018-07-05] MEDS: SENNOSIDES/DOCUSATE COMBO (SENNA PLUS) TABLET (UD) PO PRN (00:33)
[2018-07-05] MEDS: SIMETHICONE 80 MG TAB.CHEW (FP) PO PRN ×2 (00:33→12:13)
[2018-07-05] MEDS: oxyCODONE HCL 5 MG TABLET PO PRN (00:34)
[2018-07-05] MEDS: FERROUS SO4 325 MG TABLET (FP) PO SCH (08:08)
[2018-07-05] MEDS: ENOXAPARIN NA (PORCINE) 40 MG/0.4 ML DISP.SYRIN SQ SCH (09:25)
[2018-07-05] MEDS: PRENATAL VITAMINS W/ FOLIC ACID TABLET (FP) PO SCH (09:25)
[2018-07-05 09:31] VITALS: BP 128/82; PULSE 81
[2018-07-05] MEDS: ACETAMINOPHEN 325 MG TABLET (FP) PO PRN (12:10)
--- NOTE | 2018-07-06 18:51 | DS ---
Physical Exam-SUPERVISOR ELECTRIC Vital Signs: Vital Signs Temperature 97.9 F 07/05/18 09:28 Pulse Rate 81 07/05/18 09:28 Respiratory Rate 18 07/05/18 09:28 Blood Pressure 128/82 07/05/18 09:28 O2 Sat by Pulse Oximetry (%) 99 07/01/18 21:00 Constitutional: Yes: Well Nourished Eyes: Yes: WNL HENT: Yes: WNL, Normocephalic Neck: Yes: WNL Cardiovascular: Yes: WNL, Regular Rate and Rhythm Respiratory: Yes: WNL, CTA Bilaterally Gastrointestinal: Yes: WNL, Normal Bowel Sounds, Soft, Other (bm done). No: Distention ....Post : Yes: Uterus firm, Uterus non-tender, Slight lochia rubra Breast(s): Yes: WNL (bf, pumping ,breast not engorged) Musculoskeletal: Yes: WNL Extremities: Yes: WNL. No: Calf Tenderness Edema: Yes Edema: LLE: 1+, RLE: 1+ Wound/Incision: Yes: Clean/Dry, Well Approximated, Sutures Intact (intradermal sutures), Steri Strips, Open to air Neurological: Yes: WNL, Alert, Oriented ...Motor Strength: WNL Psychiatric: Yes: WNL, Alert Labs: CBC, BMP 07/04/18 06:55 07/01/18 16:15 Delivery - Delivery Section: Primary, Low Flap Transverse (35.4 weeks twins in labor) Type of Anesthesia: Spinal Episiotomy/Laceration: None EBL (cc): 700 (back out put 200 ml jody color ) Delivery, Single - [place] Feeding Plan Initial Plan: Elected not to breastfeed exclusively throughout hospitalization Delivery, Multiple Births - Stages of Labor First Stage Date: 07/01/18 Time: 11:15 Delivery Baby "A" Date: 07/01/18 Time: 17:36 Placenta/Membranes "A" Date: 07/01/18 Time: 17:38 Delivery Baby "B" Date: 07/01/18 Time: 17:37 Placenta/Membranes "B" Date: 07/01/18 Time: 17:38 - Condition of Multiple Births [place] 1 (A) Camp Maintenance Supervisor/Babbitt Spinner Present: Yes Camp Maintenance Supervisor: Reba Sood Infant Gender: Female Weight: 3 lb 6 oz Position: Right, OP Total Hours ROM (HRS/MINS): 0/2 [place] 2 (B) Camp Maintenance Supervisor/Babbitt Spinner Present: Yes Camp Maintenance Supervisor: SoodReba Infant Gender: Female Weight: 4 lb 10 oz Position: Right Total Hours ROM (HRS/MINS): 0/3 - 1 (A) Score: 9 1 (A) 5 Minutes Score: 9 2 (B) 1 Minute Score: 9 [place] 2 (B) 5 Minutes Score: 9 1 (A) 1 Minute Score: 9 Remarks - Remarks Remarks: 27 yrs 35.4 weeks , monochorionic diamniotic twins , in labor pnc at [address] [place] [address] intraop course uneventful . post op course uneventful discharge by Dr Serrano on 07/05/18 Discharge Summary Reason For Visit: PRE-TERM LABOR 35 WEEK TWINS Condition: Good - Instructions Diet, Activity, Other Instructions: Post Instructions DIET: Continue good diet high in protein, calcium, and iron rich foods. Drink at least eight (8) glasses of water daily in addition to other fluids. ct Regular diet MEDICATIONS: Continue vitamins and iron as previously directed. Motrin and Tylenol may be taken for minor discomfort. ACTIVITY: Mild to moderate exercise may be started in two (2) weeks. Take frequent rest periods. Resume normal activity after six (6) week check up. WOUND CARE OF OPERATIVE SITE: Continue use of perineal bottle until vaginal discharge stops. Keep area clean. Shower daily. Keep abdominal wound dry. Report any drainage or redness to physician. Tub baths, tampons and douches are not permitted for [address] Breast feeding & or Bottle feeding BREAST CARE: (For those that are not breast feeding): If engorgement occurs: Wear tight fitting bra. Take Tylenol or Motrin for pain. Apply cold packs (ice in bags to each breast ) FAMILY PLANNING: There are many control alternatives to pursue and they should be discussed at your first office visit. You may resume sexual activity after your six (6) week check up. (Remember, breast feeding is not a contraceptive) NEXT PHYSICIAN APPOINTMENT: Be certain to call for a one (1) week appointment, unless otherwise directed. wound check Call Clinic or got to Emergency Dept if you have any of the following: Heavy vaginal bleeding Painful urination Leg pain Unusual odor noted to vaginal bleeding High fever Red streaking noted on breast Referrals: Divya Valentin MD [Staff Physician] - Disposition: HOME - Home Medications Comprehensive Discharge Medication List: Ambulatory Orders Ferrous Sulfate [Feosol] 325 mg PO DAILY 06/10/18 Vitamins (Sjr) - 1 tab PO DAILY 06/10/18 Acetaminophen [Tylenol .Regular Strength -] 500 mg PO Q4H PRN #30 tablet Ferrous Sulfate [Feosol] 325 mg PO DAILY tab 07/03/18 Ibuprofen [Motrin -] 600 mg PO Q4H PRN #30 tablet 07/03/18 Ondansetron Injection [Zofran Injection] 4 mg IVPUSH Q4H PRN vial 07/03/18 Vitamins (Sjr) - 1 tab PO DAILY #30 tablet 07/03/18
--- NOTE | 2018-07-07 16:37 | PATH ---
Surgical Pathology Report Patient Name: DAVIDE MCBRIDE [facility]. Rec. 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 Specimen(s) Received PLACENTA,TWIN Clinical History , 35.4 weeks twin gestation, labor, monochorionic/diamniotic, short cervix Final Diagnosis Placenta: Diamniotic, monochorionic, twin, third trimester placenta. Placenta "A" shows a three-vessels cord and membranes with no diagnostic abnormalities. Placenta "B" shows a three-vessels cord and membranes with no diagnostic abnormalities. Electronically Signed Hilaria Rowe M.D. Gross Description Received in formalin labeled "placenta," is a 482 g, 15.5 x 15.5 x 2.8 cm twin placenta comprised of 2 fused discs, by dividing membranes. The dividing membranes are owen and translucent. There is one clamp marking the umbilical cord of placenta "A" and two clamps marking the umbilical cord of placenta "B", per the surgeon. The placenta "A" membranes are owen, translucent with focal opacities and insert marginally. The umbilical cord of placenta "A" measures 23 cm in length and averages 0.8 cm in diameter. The cord inserts eccentrically, 2 cm to the nearest margin. No true knots or strictures are identified. Cut surface of the umbilical cord reveals 3 vessels. The membranes of placenta "B" are owen, translucent with focal opacities and insert marginally. The umbilical cord of placenta "B" measures 6 cm in length and averages 1.1 cm in diameter. The cord inserts eccentrically, 4 cm to the nearest margin. No true knots or strictures are identified. Cut surface of the umbilical cord reveals 3 vessels. The surface is phan blue with minimal fibrin deposition and appropriate caliber vessels. The maternal surface is red-brown with focal defects. Sectioning reveals red-brown, spongy parenchyma. No lesions are identified. [place] sections are submitted in 7 cassettes as follows: 1-placenta "A" membrane roll and umbilical cord; 8-5-pbsa-thickness sections of placenta "A"; 4-dividing membranes; 5-placenta "B" membrane rolls and umbilical cord; 4-3-jgao-thickness sections of placenta "B" 07/06/2018 [facility]07/06/2018
== END 2018-07-05 14:10 | disposition home or self-care (01) | DRG 540 ==
LOC: JDEL 13:35 → JLDR 15:42 → J3W 20:00
PROVIDERS: ADMIT Obstetrics & Gynecology; ATTEND Obstetrics & Gynecology
PROC: 10D00Z1 Extraction of Products of Conception, Low, Open Approach (ICD-10-PCS; principal; 2018-07-01)
DX: O32.1XX1 Maternal care for breech presentation, fetus 1 (principal); O30.033 Twin pregnancy, monochorionic/diamniotic, third trimester; Z3A.35 35 weeks gestation of pregnancy; Z37.2 Twins, both liveborn
CPT/HCPCS: 36415; 36600; 80048; 82803; 85025; 85610; 85730; 86593; 86850; 86900; 86901; 88307-TC

== ENCOUNTER 2018-12-12 14:29 | Emergency (ER) | payer OTHER ==
[2018-12-12 14:33] VITALS: BMI 23.6
[2018-12-12] MEDS ORDERED: ONDANSETRON *ODT* 4 MG TABLET SL ONE (15:50)
[2018-12-12] MEDS ORDERED: SODIUM CHLORIDE 1,000 ML IV STA (16:10)
[2018-12-12] MEDS ORDERED: ONDANSETRON 4 MG/2 ML VIAL IVPUSH ONE (16:10)
[2018-12-12] MEDS ORDERED: ACETAMINOPHEN 1000 MG/100 ML VIAL (NON FORMULARY) IVPB ONE (16:10)
[2018-12-12 16:30] LABS: BASO % 0.8 % (0-2.0); EOS % 1.3 % (0-4.5); HEMATOCRIT 42.1 % (32.4-45.2); HEMOGLOBIN 14.5 GM/dL (10.7-15.3); LYMPH % 32.5 % (8-40); MCH 30.8 pg (25.7-33.7); MCHC 34.6 g/dl (32.0-36.0); MEAN CELL VOLUME 89.2 fl (80-96); MEAN PLT VOLUME 7.7 fl (7.5-11.1); MONO % 8.4 % (3.8-10.2); PLATELET COUNT 294 K/MM3 (134-434); RBC 4.72 M/mm3 (3.60-5.2); RDW 13.9 % (11.6-15.6); WHITE BLOOD COUNT 7.5 K/mm3 (4.0-10.0)
[2018-12-12] MEDS ORDERED: ACETAMINOPHEN INJECTION 100 ML IVPB ONE (16:52)
[2018-12-12] MEDS ORDERED: ONDANSETRON 4 MG/2 ML VIAL ONE (16:53)
[2018-12-12 16:55] LABS: URINE APPEARANCE CLOUDY; URINE BILIRUBIN NEGATIVE (<2.0 mg/dL); URINE COLOR YELLOW; URINE GLUCOSE (UA) NEGATIVE (NEGATIVE); URINE KETONE 1+ (NEGATIVE); URINE LEUK ESTERASE 1+ (NEGATIVE); URINE NITRITE NEGATIVE (NEGATIVE); URINE PROTEIN 1+ (NEGATIVE); URINE UROBILINOGEN NEGATIVE mg/dL (0.2-1.0)
[2018-12-12 16:59] LABS: ALBUMIN 4.1 g/dl (3.4-5.0); ALK PHOS 79 U/L (45-117); ANION GAP 6 MMOL/L (8-16); BLOOD UREA NITROGEN 10 mg/dL (7-18); CHLORIDE 106 mmol/L (98-107); CO2 25 mmol/L (21-32); CREATININE 0.6 mg/dL (0.55-1.3); GLUCOSE,RANDOM 68 mg/dL (74-106); LIPASE 157 U/L (73-393); POTASSIUM 4.2 mmol/L (3.5-5.1); SGOT/AST 22 U/L (15-37); SGPT/ALT 41 U/L (13-61); SODIUM 137 mmol/L (136-145); TOT PROT 7.6 g/dl (6.4-8.2)
[2018-12-12 17:03] LABS: HCG,QUALITATIVE URINE Negative
--- NOTE | 2018-12-12 17:07 | PDOC ---
History of Present Illness - General Chief Complaint: Pain Stated Complaint: ABD PAIN Time Seen by Provider: 12/12/18 15:50 History Source: Patient Exam Limitations: No Limitations - History of Present Illness Travel History: No Initial Comments: 12/12/18 16:34 28-year-old female presents to the ED with complaints of of right lower quadrant pain which she describes a cramp-like pain radiating to her flank area since yesterday associated with nausea with one episode of vomiting. Patient denies fever but states chills yesterday and took Motrin 600 mg at 4 PM. Patient denies recent travel recent illness but states had an IUD placed last Thursday and is currently spotting which she states she believes is her menstruation Timing/Duration: reports: constant Quality: reports: moderate, cramping Abdominal Pain Onset Location: reports: RLQ Pain Radiation: reports: flank Activities at Onset: reports: none Aggravating Factors: improves with: None Alleviating Factors: improves with: None Past History - Travel Traveled outside of the country in the last 30 days: No Close contact w/someone who was outside of country & ill: No - Past Medical History Allergies/Adverse Reactions: Allergies Allergy/AdvReac Type Severity Reaction Status Date / Time No Known Allergies Allergy Verified 12/12/18 14:33 Home Medications: Ambulatory Orders NK [No Known Home Medication] 12/12/18 Asthma: No Cancer: No Cardiac Disorders: No COPD: No Diabetes: No HTN: No Seizures: No Thyroid Disease: No - Reproductive History (#): 1 Para: 0 - Immunization History Immunization Up to Date: Yes - Suicide/Smoking/Psychosocial Hx Smoking History: Never smoked Have you smoked in the past 12 months: No Hx Alcohol Use: No Drug/Substance Use Hx: No Substance Use Type: None Hx Substance Use Treatment: No Patient Lives Alone: No Lives with/in: spouse/SO Review of Systems - Review of Systems Able to Perform ROS?: No Is the patient limited Congolese proficient: No Constitutional: Yes: Weakness HEENTM: No: Symptoms Reported Respiratory: No: Symptoms reported Cardiac (ROS): No: Symptoms Reported ABD/GI: Yes: Nausea, Vomiting, Abdominal cramping : No: Symptoms Reported Musculoskeletal: No: Symptoms Reported Integumentary: No: Symptoms Reported Neurological: No: Symptoms reported Endocrine: No: Symptoms Reported Hematologic/Lymphatic: No: Symptoms Reported *Physical Exam - Vital Signs Last Vital Signs Temp Pulse Resp BP Pulse Ox 98.4 F 75 18 127/69 99 12/12/18 14:31 12/12/18 14:31 12/12/18 14:31 12/12/18 14:31 12/12/18 14:31 - Physical Exam General Appearance: Yes: Nourished, Appropriately Dressed. No: Apparent Distress HEENT: positive: Pharynx Normal. negative: Pale Conjunctivae Neck: positive: Normal Thyroid, Supple Respiratory/Chest: positive: Lungs Clear, Normal Breath Sounds. negative: Respiratory Distress, Accessory Muscle Use Cardiovascular: positive: Regular Rhythm, Regular Rate. negative: Murmur Gastrointestinal/Abdominal: positive: Normal Bowel Sounds, Soft, Tenderness ( right suprapubic,right lower quadrant,right flank tenderness). negative: Distended, Guarding, Rebound Musculoskeletal: negative: CVA Tenderness Extremity: positive: Normal Inspection Integumentary: positive: Normal Color, Warm, Moist Neurologic: positive: Normal Mood/Affect, Motor Strength 5/5 (ambulatory) Moderate Sedation - Procedure Monitoring Vital Signs: Procedure Monitoring Vital Signs Temperature 98.4 F 12/12/18 14:31 Pulse Rate 75 12/12/18 14:31 Respiratory Rate 18 12/12/18 14:31 Blood Pressure 127/69 12/12/18 14:31 O2 Sat by Pulse Oximetry (%) 99 12/12/18 14:31 ED Treatment Course - LABORATORY CBC & Chemistry Diagram: 12/12/18 16:12 12/12/18 16:12 - ADDITIONAL ORDERS Additional order review: Laboratory Results 12/12/18 16:12 Sodium 137 Potassium 4.2 Chloride 106 Carbon Dioxide 25 Anion Gap 6 L BUN 10 Creatinine 0.6 Creat Clearance w eGFR > 60 Random Glucose 68 L Calcium 9.0 Total Bilirubin 1.0 AST 22 ALT 41 Alkaline Phosphatase 79 Total Protein 7.6 Albumin 4.1 Lipase 157 12/12/18 16:12 RBC 4.72 MCV 89.2 MCHC 34.6 RDW 13.9 MPV 7.7 Neutrophils % 57.0 Lymphocytes % 32.5 D Monocytes % 8.4 Eosinophils % 1.3 Basophils % 0.8 - RADIOLOGY Radiology Studies Ordered: Category Date Time Status ABDOMEN & PELVIS CT WITH CONTR [CT] Stat CT Scan 12/12/18 16:09 Ordered PELVIC / BLADDER US [US] Stat Ultrasound 12/12/18 16:08 Ordered TRANSVAGINAL ULTRASOUND US [US] Stat Ultrasound 12/12/18 16:08 Ordered - Medications Given in the ED: ED Medications Discontinued Medications Generic Name Dose Route Start Last Admin Trade Name Mis PRN Reason Stop Dose Admin Acetaminophen 1,000 mg 12/12/18 16:10 12/12/18 17:01 Ofirmev Injection - IVPB 12/12/18 16:11 1,000 mg ONCE ONE Administration Ondansetron HCl 4 mg 12/12/18 16:10 12/12/18 17:02 Zofran Injection IVPUSH 12/12/18 16:11 4 mg ONCE ONE Administration Medical Decision Making - Medical Decision Making 12/12/18 16:37 Chief complaint: Lower abdominal pain associated nausea and vomiting since yesterday patient with IUD placement last Thursday and states is currently spotting which she states is likely due to menstruation since it is due to arrive Exam: Right lower quadrant right to the pubic of right flank tenderness. Pelvic exam deferred as per patient's request Plan: CBC, comp, lipase, urinalysis urine pelvic and transvaginal ultrasound. If negative will continue with abdominal CT which I have began by mouth contrast for 12/12/18 17:09 Laboratory Tests 12/12/18 12/12/18 12/12/18 15:49 16:12 16:12 WBC 7.5 Hgb 14.5 Hct 42.1 D Neutrophils % 57.0 Sodium 137 Potassium 4.2 Chloride 106 Carbon Dioxide 25 Anion Gap 6 L BUN 10 Creatinine 0.6 Random Glucose 68 L Calcium 9.0 Total Bilirubin 1.0 AST 22 ALT 41 Alkaline Phosphatase 79 Total Protein 7.6 Albumin 4.1 Lipase 157 Urine Protein 1+ H Urine Ketones 1+ H Urine Blood 3+ H Urine Nitrite Negative Ur Leukocyte Esterase 1+ H Urine WBC (Auto) Pending Urine RBC (Auto) Pending Urine HCG, Qual Negative 12/12/18 17:34 Based on urine results will order a spiral CT. By mouth contrast administered and will rule out appendicitis, renal colic, and colitis. Patient will continue to fill for ultrasound patient ordered for D5 n S secondary to glucose of 68. *DC/Admit/Observation/Transfer - Referrals Referrals: Shemar Wesley MD [Primary Care Provider] - - Patient Instructions - Post Discharge Activity
[2018-12-12 17:09] LABS: EPI CELLS MODERATE /HPF (FEW); URINE HYALINE CAST 1 /lpf; URINE MUCUS RARE
[2018-12-12] MEDS ORDERED: DEXTROSE 5%-NORMAL SALINE 1,000 ML IV ONE (17:18)
--- NOTE | 2018-12-12 17:18 | PDOC ---
*Physical Exam - Vital Signs Last Vital Signs Temp Pulse Resp BP Pulse Ox 98.4 F 75 18 127/69 99 12/12/18 14:31 12/12/18 14:31 12/12/18 14:31 12/12/18 14:31 12/12/18 14:31 ED Treatment Course - LABORATORY CBC & Chemistry Diagram: 12/12/18 16:12 12/12/18 16:12 - ADDITIONAL ORDERS Additional order review: Laboratory Results 12/12/18 12/12/18 16:12 15:49 Sodium 137 Potassium 4.2 Chloride 106 Carbon Dioxide 25 Anion Gap 6 L BUN 10 Creatinine 0.6 Creat Clearance w eGFR > 60 Random Glucose 68 L Calcium 9.0 Total Bilirubin 1.0 AST 22 ALT 41 Alkaline Phosphatase 79 Total Protein 7.6 Albumin 4.1 Lipase 157 Urine Color Yellow Urine Appearance Cloudy Urine pH 5.0 D Ur Specific [place] 1.017 Urine Protein 1+ H Urine Glucose (UA) Negative Urine Ketones 1+ H Urine Blood 3+ H Urine Nitrite Negative Urine Bilirubin Negative Urine Urobilinogen Negative Ur Leukocyte Esterase 1+ H Urine WBC (Auto) 26 Urine RBC (Auto) 383 Ur Epithelial Cells Moderate Hyaline Casts 1 Urine Mucus Rare Urine HCG, Qual Negative 12/12/18 16:12 RBC 4.72 MCV 89.2 MCHC 34.6 RDW 13.9 MPV 7.7 Neutrophils % 57.0 Lymphocytes % 32.5 D Monocytes % 8.4 Eosinophils % 1.3 Basophils % 0.8 - Medications Given in the ED: ED Medications Discontinued Medications Generic Name Dose Route Start Last Admin Trade Name Freq PRN Reason Stop Dose Admin Acetaminophen 1,000 mg 12/12/18 16:10 12/12/18 17:01 Ofirmev Injection - IVPB 12/12/18 16:11 1,000 mg ONCE ONE Administration Sodium Chloride 1,000 mls @ 1,000 mls/hr 12/12/18 16:10 12/12/18 17:01 Normal Saline - IV 12/12/18 17:09 1,000 mls/hr ASDIR STA Administration Ondansetron HCl 4 mg 12/12/18 15:50 12/12/18 17:04 Zofran Odt - SL 12/12/18 15:51 Not Given ONCE ONE Ondansetron HCl 4 mg 12/12/18 16:10 12/12/18 17:02 Zofran Injection IVPUSH 12/12/18 16:11 4 mg ONCE ONE Administration Medical Decision Making - Medical Decision Making 12/12/18 17:18 Pt seen by the Advanced Practice Provider under my direct supervision Ancillary studies reviewed I agree with plan as outlined by the Advanced Practice Provider NEGRO Mitchell *DC/Admit/Observation/Transfer - Referrals Referrals: Shemar Wesley MD [Primary Care Provider] - - Patient Instructions - Post Discharge Activity
--- NOTE | 2018-12-12 20:10 | PDOC ---
*Physical Exam - Vital Signs Last Vital Signs Temp Pulse Resp BP Pulse Ox 98.4 F 75 18 127/69 99 12/12/18 14:31 12/12/18 14:31 12/12/18 14:31 12/12/18 14:31 12/12/18 14:31 ED Treatment Course - LABORATORY CBC & Chemistry Diagram: 12/12/18 16:12 12/12/18 16:12 - ADDITIONAL ORDERS Additional order review: Laboratory Results 12/12/18 12/12/18 16:12 15:49 Sodium 137 Potassium 4.2 Chloride 106 Carbon Dioxide 25 Anion Gap 6 L BUN 10 Creatinine 0.6 Creat Clearance w eGFR > 60 Random Glucose 68 L Calcium 9.0 Total Bilirubin 1.0 AST 22 ALT 41 Alkaline Phosphatase 79 Total Protein 7.6 Albumin 4.1 Lipase 157 Urine Color Yellow Urine Appearance Cloudy Urine pH 5.0 D Ur Specific [place] 1.017 Urine Protein 1+ H Urine Glucose (UA) Negative Urine Ketones 1+ H Urine Blood 3+ H Urine Nitrite Negative Urine Bilirubin Negative Urine Urobilinogen Negative Ur Leukocyte Esterase 1+ H Urine WBC (Auto) 26 Urine RBC (Auto) 383 Ur Epithelial Cells Moderate Hyaline Casts 1 Urine Mucus Rare Urine HCG, Qual Negative 12/12/18 16:12 RBC 4.72 MCV 89.2 MCHC 34.6 RDW 13.9 MPV 7.7 Neutrophils % 57.0 Lymphocytes % 32.5 D Monocytes % 8.4 Eosinophils % 1.3 Basophils % 0.8 - Medications Given in the ED: ED Medications Discontinued Medications Generic Name Dose Route Start Last Admin Trade Name Freq PRN Reason Stop Dose Admin Acetaminophen 1,000 mg 12/12/18 16:10 12/12/18 17:01 Ofirmev Injection - IVPB 12/12/18 16:11 1,000 mg ONCE ONE Administration Sodium Chloride 1,000 mls @ 1,000 mls/hr 12/12/18 16:10 12/12/18 17:01 Normal Saline - IV 12/12/18 17:09 1,000 mls/hr ASDIR STA Administration Dextrose/Sodium Chloride 1,000 mls @ 1,000 mls/hr 12/12/18 17:18 12/12/18 17: 27 D5-Ns - IV 12/12/18 18:17 1,000 mls/hr ONCE ONE Administration Ondansetron HCl 4 mg 12/12/18 15:50 12/12/18 17:04 Zofran Odt - SL 12/12/18 15:51 Not Given ONCE ONE Ondansetron HCl 4 mg 12/12/18 16:10 12/12/18 17:02 Zofran Injection IVPUSH 12/12/18 16:11 4 mg ONCE ONE Administration Medical Decision Making - Medical Decision Making 12/12/18 1900 Endorsed to me to follow CT scan Patient feeling comfortable p/e mild tenderness Right LLQ 12/12/18 20:03 Patient Full Name: RAE AUGUSTINE Patient Accession No: [id number] Patient : 1990 Reason for Exam: STONE, APPENDICITIS, COLITIS Referring Physician: CITLALY VACA Patient Name: DAVIDE MCBRIDE THIS IS A PRELIMINARY REPORT FROM [facility] [employer] [facility] DATE OF SERVICE: 2018-12-12 18:21:15 IMAGES: [id number] EXAM: CT ABDOMEN AND PELVIS WITHOUT CONTRAST TECHNIQUE: Contiguous axial images acquired with reformat sagittal and coronal planes. Oral contrast administered REASON FOR EXAM: Abdominal pain COMPARISON: None FINDINGS: Lower lung gonzalez are clear. There are no gallstones identified. Liver, pancreas, spleen and adrenal glands are grossly unremarkable given the limitation of this non contrast exam. No renal stones are seen or evidence of obstructive uropathy. Abdominal aorta without AAA. There is no retroperitoneal hemorrhage The appendix is normal. Uterus with intrauterine contraceptive device is slightly tilted to the left of midline. Large 4 cm cyst in the right adnexa is noted likely ovarian. No evidence of bowel obstruction, ascites, abscess, free air or diverticulitis. Bladder unremarkable. Lumbar spine and bony pelvis without fracture or suspicious lesion. IMPRESSION: 4 cm right ovarian cyst. No free fluid in the pelvis. No renal stones or evidence of obstructive uropathy. Appendix is normal. One or more of the following dose reduction techniques were used: automated exposure control, adjustment of the mA and/or kV according to patient size, use of iterative reconstruction technique. One or more of the following dose reduction techniques were used: automated exposure control, adjustment of the mA and/or kV according to patient size, use of iterative reconstructive technique. THIS DOCUMENT HAS BEEN ELECTRONICALLY SIGNED Qian Amaro D.O. 12/12/2018 18:55 ANTONIA Chappell Please call [facility] [phone] ([phone]) with questions. INTERPRETING RADIOLOGIST: Qian Amaro MD Electronically Signed: Dec 12, 2018 06:55PM EST 12/12/18 20:08 Patient 1 UA done was not clean catch will resend and call patient at [phone]. [facility] [address] [facility], [place] [address] I discussed the physical exam findings, ancillary test results and final diagnoses with the patient. I answered all of the patient's questions. The patient was satisfied with the care received and felt comfortable with the discharge plan and treatment plan. The Patient agrees to follow up with the primary care physician within 24-72 hours. *DC/Admit/Observation/Transfer Diagnosis at time of Disposition: Right ovarian cyst - Discharge Dispostion Disposition: HOME Condition at time of disposition: Stable - Referrals Referrals: Shemar Wesley MD [Primary Care Provider] - - Patient Instructions Printed Discharge Instructions: DI for Ovarian Cyst Additional Instructions: Your Discharge Instructions: You must call primary care physician within 24 hours to arrange follow-up. Return to the Emergency Department with any new, persistent or worsening symptoms, for fever, chills, SOB, dizziness or any other concerning changes that may occur. you must follow-up which are [employer] doctor for further evaluation of the cyst. - Post Discharge Activity
[2018-12-12 20:32] VITALS: BP 122/79; PULSE 76; TEMP 97.8
[2018-12-12 20:33] LABS: URINE APPEARANCE CLEAR; URINE BILIRUBIN NEGATIVE (<2.0 mg/dL); URINE COLOR STRAW; URINE GLUCOSE (UA) 3+ (NEGATIVE); URINE KETONE NEGATIVE (NEGATIVE); URINE LEUK ESTERASE NEGATIVE (NEGATIVE); URINE NITRITE NEGATIVE (NEGATIVE); URINE PROTEIN NEGATIVE (NEGATIVE); URINE UROBILINOGEN NEGATIVE mg/dL (0.2-1.0)
[2018-12-12 20:38] LABS: EPI CELLS RARE /HPF (FEW)
== END 2018-12-12 20:33 | disposition home or self-care (01) ==
LOC: JER 14:29
PROC: 3E0337Z Introduction of Electrolytic and Water Balance Substance into Peripheral Vein, Percutaneous Approach (ICD-10-PCS; principal; 2018-12-12)
PROC: 3E033NZ Introduction of Analgesics, Hypnotics, Sedatives into Peripheral Vein, Percutaneous Approach (ICD-10-PCS; 2018-12-12)
PROC: 3E033GC Introduction of Other Therapeutic Substance into Peripheral Vein, Percutaneous Approach (ICD-10-PCS; 2018-12-12)
DX: N83.201 Unspecified ovarian cyst, right side (principal)
CPT/HCPCS: 36415; 74176-TC; 76830-TC; 76856-TC; 80053; 81003; 81015; 83690; 84703; 85025; 87086; 96361; 96374; 96375; 99282-25; J0131; J7030

== ENCOUNTER 2021-05-11 10:53 | Emergency (ER) | payer OTHER ==
[2021-05-11 11:07] VITALS: BP 104/69; PULSE 98; TEMP 97.5; BMI 23.2
[2021-05-11] MEDS ORDERED: ONDANSETRON 4 MG/2 ML VIAL IVPUSH ONE (11:40)
[2021-05-11] MEDS ORDERED: SODIUM CHLORIDE 0.9% 500 ML INFUS.BAG IV ONE (11:40)
[2021-05-11] MEDS ORDERED: PANTOPRAZOLE SODIUM 40 MG VIAL IVPUSH ONE (11:41)
[2021-05-11] MEDS ORDERED: ONDANSETRON 4 MG/2 ML VIAL ONE (11:52)
[2021-05-11] MEDS ORDERED: PANTOPRAZOLE SODIUM 40 MG/100 ML BAG IVPB ONE (11:52)
[2021-05-11 11:54] LABS: BASO % 0.5 % (0-2.0); EOS % 0.2 % (0-4.5); HEMATOCRIT 38.5 % (32.4-45.2); HEMOGLOBIN 13.3 GM/dL (10.7-15.3); MCH 29.8 pg (25.7-33.7); MCHC 34.5 g/dl (32.0-36.0); MEAN CELL VOLUME 86.4 fl (80-96); MEAN PLT VOLUME 7.2 fl (7.5-11.1); MONO % 2.6 % (3.8-10.2); NEUT % 85.7 % (42.8-82.8); PLATELET COUNT 289 10^3/uL (134-434); RBC 4.46 M/mm3 (3.60-5.2); RDW 13.4 % (11.6-15.6); WHITE BLOOD COUNT 9.2 K/mm3 (4.0-10.0)
[2021-05-11 12:20] LABS: ALBUMIN 4.6 g/dl (3.4-5.0); BLOOD UREA NITROGEN 12.6 mg/dL (7-18); CALCIUM 9.4 mg/dL (8.5-10.1)
[2021-05-11 12:23] LABS: CREATININE 0.7 mg/dL (0.55-1.3)
[2021-05-11 12:24] LABS: TOT PROT 8.8 g/dl (6.4-8.2)
[2021-05-11 12:29] LABS: EPI CELLS 15 /uL (0-25.1); HYALINE CASTS 3 /uL (0-3.1); PH,URINE >= 9.0 (5.0-8.0); URINE APPEARANCE CLOUDY; URINE BACTERIA 500 /uL (0-1359); URINE BILIRUBIN NEGATIVE (NEGATIVE); URINE COLOR YELLOW; URINE GLUCOSE (UA) NEGATIVE (NEGATIVE); URINE KETONE 2+ (NEGATIVE); URINE LEUK ESTERASE TRACE (NEGATIVE); URINE NITRITE NEGATIVE (NEGATIVE); URINE PROTEIN 1+ (NEGATIVE); URINE WBC 24 /uL (0-25.8)
[2021-05-11 12:30] LABS: HCG,QUALITATIVE URINE Negative
== END 2021-05-11 13:21 | disposition home or self-care (01) ==
LOC: JER 10:53
PROC: 3E033NZ Introduction of Analgesics, Hypnotics, Sedatives into Peripheral Vein, Percutaneous Approach (ICD-10-PCS; principal; 2021-05-11)
PROC: 3E033GC Introduction of Other Therapeutic Substance into Peripheral Vein, Percutaneous Approach (ICD-10-PCS; 2021-05-11)
DX: K52.9 Noninfective gastroenteritis and colitis, unspecified (principal)
CPT/HCPCS: 36415; 80053; 81003; 83690; 84703; 85025; 99284-25